=== PATIENT | male | born 1940 | race Caucasian/White ===

== ENCOUNTER 2020-09-20 00:47 | Inpatient (IN) ==
[2020-09-20] MEDS ORDERED: Ringers Solution, Lactated 1,000 ML IVC ONE (01:43)
[2020-09-20] MEDS ORDERED: Piperacillin/Tazobactam 3.375 GM in Water for inj. (sterile) 20 ML IVP ONE (01:43)
[2020-09-20] MEDS ORDERED: Vancomycin 1,250 MG/262.5 ML IV.SOLN IVPB ONE (01:43)
[2020-09-20 02:30] LABS: VBG HCO3 31 mEq/L (21-27); VBG PCO2 43 mmHg (41-51); VBG PH 7.46 pH Units (7.32-7.42); VBG PO2 91 mmHg (25-50)
[2020-09-20 02:33] LABS: Basophils # 0.1 K/mcL (0.0-0.2); Basophils % 0.5 %; Eosinophils # 0.3 K/mcL (0.0-0.6); Eosinophils % 1.7 %; Hematocrit 43.7 % (37.5-50.1); Hemoglobin 13.1 g/dL (12.9-16.9); Immature Granulocytes % 0.3 % (0-4); Lymphocytes % 13.4 %; Mean Corpuscular Hemoglobin 25.9 pg (28.0-33.3); Mean Corpuscular Volume 86.4 fL (83.0-100.0); Mean Platelet Volume 12.5 fL (9.4-12.4); Monocytes # 1.3 K/mcL (0.0-1.3); Monocytes % 8.5 %; Neutrophils # 11.2 K/mcL (1.6-8.9); Platelet Count 280 K/mcL (140-400); Red Blood Count 5.06 M/mcL (4.19-5.50); Red Cell Distribution Width 16.8 % (11.5-14.5); Segmented Neutrophils % 75.6 %; White Blood Count 14.8 K/mcL (4.3-11.1)
[2020-09-20 02:42] LABS: INR 1.1; Prothrombin Time 13.1 Seconds (9.4-12.1)
[2020-09-20 02:55] LABS: Alanine Aminotransferase 31 Units/L (7-52); Albumin 3.5 g/dL (3.5-5.7); Alkaline Phosphatase 103 Units/L (34-104); Aspartate Amino Transferase 22 Units/L (13-39); BUN/Creatinine Ratio 47 (6-26); Bilirubin,Indirect 0.3 mg/dL (0.0-1.0); Bilirubin,Total 0.3 mg/dL (0.3-1.0); Blood Urea Nitrogen 42 mg/dL (8-23); Calcium 9.1 mg/dL (8.6-10.3); Carbon Dioxide 29 mEq/L (23-29); Chloride 114 mEq/L (98-107); Globulin 3.6 g/dL (2.4-3.5); Glucose 123 mg/dL (70-105); Lipase 10 Units/L (11-82); Magnesium 2.3 mg/dL (1.6-2.6); Osmolality,Calculated 326 (280-300); Potassium 4.4 mEq/L (3.5-5.1); Sodium 152 mEq/L (136-145); Total Protein 7.1 g/dL (6.4-8.9); Troponin I 0.04 ng/mL (< 0.04); eGFR For African Americans > 60 (> 60); eGFR For Non-African Americans > 60 (> 60)
[2020-09-20 03:12] LABS: Bacteria,Urine Few per hpf (None-Few); Bilirubin,Urine Negative (Negative); Blood,Urine Moderate (Negative); Calcium Oxalate Crystals,Urine Present per hpf; Clarity,Urine Turbid (Clear); Color,Urine Yellow (Yellow); Glucose,Urine (UA) Normal (Normal); Ketones,Urine Negative (Negative); Leukocyte Esterase,Urine Large (Negative); Mucus,Urine Few per lpf (None-Few); Nitrite,Urine Positive (Negative); Protein,Urine 100 mg/dL (Neg-Trace); RBC,Urine TNTC per hpf (0-3); Specific Gravity,Urine 1.026 (1.010-1.025); Triple Phosphate Crystal,Urine Present per hpf; Urobilinogen,Urine Normal (Normal); WBC,Urine TNTC per hpf (0-3)
[2020-09-20] MEDS ORDERED: Azithromycin 250 MG TABLET PO ONE (04:14)
[2020-09-20] MEDS ORDERED: Naloxone 0.4 MG/ML INJ IVP PRN (04:40)
[2020-09-20] MEDS ORDERED: Ondansetron ODT 4 MG TAB.RAPDIS SL PRN (04:40)
[2020-09-20] MEDS ORDERED: Azithromycin 500 MG in 0.9 % Sodium Chloride 250 ML IVPB ONE (05:07)
[2020-09-20] MEDS ORDERED: Milk and Molasses Enema 200 ML RC ONE (05:12)
[2020-09-20 06:52] LABS: BUN/Creatinine Ratio 41 (6-26); Blood Urea Nitrogen 38 mg/dL (8-23); Calcium 8.9 mg/dL (8.6-10.3); Carbon Dioxide 31 mEq/L (23-29); Chloride 115 mEq/L (98-107); Glucose 168 mg/dL (70-105); Osmolality,Calculated 327 (280-300); Potassium 4.1 mEq/L (3.5-5.1); Sodium 152 mEq/L (136-145); Troponin I 0.03 ng/mL (< 0.04); eGFR For African Americans > 60 (> 60); eGFR For Non-African Americans > 60 (> 60)
[2020-09-20] MEDS: D5% in 0.45% NACL 1,000 ML IVC SCH ×2 (08:41→09:18)
[2020-09-20] MEDS ORDERED: *HR* Enoxaparin 30 MG/0.3 ML SYRINGE SQ SCH (09:00)
[2020-09-20] MEDS: Piperacillin/Tazobactam 3.375 GM in 0.9 % Sodium Chloride Mini Bag 100 ML IVPB SCH ×3 (09:46→16:50)
[2020-09-20 10:49] LABS: BUN/Creatinine Ratio 48 (6-26); Blood Urea Nitrogen 38 mg/dL (8-23); Carbon Dioxide 32 mEq/L (23-29); Chloride 116 mEq/L (98-107); Glucose 155 mg/dL (70-105); Osmolality,Calculated 328 (280-300); Potassium 3.9 mEq/L (3.5-5.1); Sodium 153 mEq/L (136-145); eGFR For African Americans > 60 (> 60); eGFR For Non-African Americans > 60 (> 60)
[2020-09-20 14:47] LABS: BUN/Creatinine Ratio 42 (6-26); Blood Urea Nitrogen 34 mg/dL (8-23); Calcium 8.7 mg/dL (8.6-10.3); Carbon Dioxide 32 mEq/L (23-29); Chloride 117 mEq/L (98-107); Glucose 136 mg/dL (70-105); Osmolality,Calculated 328 (280-300); Potassium 3.8 mEq/L (3.5-5.1); Sodium 154 mEq/L (136-145); eGFR For African Americans > 60 (> 60); eGFR For Non-African Americans > 60 (> 60)
[2020-09-20] MEDS: Vancomycin 1,250 MG/262.5 ML IV.SOLN IVPB SCH (14:55)
[2020-09-20 19:48] LABS: BUN/Creatinine Ratio 40 (6-26); Blood Urea Nitrogen 33 mg/dL (8-23); Calcium 8.4 mg/dL (8.6-10.3); Carbon Dioxide 30 mEq/L (23-29); Chloride 117 mEq/L (98-107); Glucose 127 mg/dL (70-105); Osmolality,Calculated 323 (280-300); Potassium 3.8 mEq/L (3.5-5.1); Sodium 152 mEq/L (136-145); eGFR For African Americans > 60 (> 60); eGFR For Non-African Americans > 60 (> 60)
[2020-09-20] MEDS: D5% in Water 1,000 ML IVC SCH (20:08)
[2020-09-20] MEDS: Piperacillin/Tazobactam 3.375 GM in D5% in Water (Mini-Bag+) 100 ML IVPB SCH (23:16)
[2020-09-21 06:33] LABS: Potassium,Urine 58.7 mEq/L; Sodium, Urine 69.4 mEq/L
[2020-09-21 06:58] LABS: Hematocrit 39.6 % (37.5-50.1); Hemoglobin 11.6 g/dL (12.9-16.9); Mean Corpuscular HGB Conc 29.3 g/dL (31.6-35.5); Mean Corpuscular Hemoglobin 25.9 pg (28.0-33.3); Mean Corpuscular Volume 88.4 fL (83.0-100.0); Mean Platelet Volume 12.7 fL (9.4-12.4); Platelet Count 226 K/mcL (140-400); Red Blood Count 4.48 M/mcL (4.19-5.50); Red Cell Distribution Width 16.4 % (11.5-14.5); White Blood Count 13.4 K/mcL (4.3-11.1)
[2020-09-21 09:24] LABS: Basophils # 0.1 K/mcL (0.0-0.2); Basophils % 0.4 %; Eosinophils # 0.3 K/mcL (0.0-0.6); Hematocrit 38.5 % (37.5-50.1); Hemoglobin 11.5 g/dL (12.9-16.9); Immature Granulocytes % 0.4 % (0-4); Lymphocytes # 1.6 K/mcL (0.6-4.6); Lymphocytes % 12.1 %; Mean Corpuscular HGB Conc 29.9 g/dL (31.6-35.5); Mean Corpuscular Hemoglobin 26.3 pg (28.0-33.3); Mean Corpuscular Volume 88.1 fL (83.0-100.0); Mean Platelet Volume 12.8 fL (9.4-12.4); Monocytes # 0.9 K/mcL (0.0-1.3); Platelet Count 221 K/mcL (140-400); Red Blood Count 4.37 M/mcL (4.19-5.50); Red Cell Distribution Width 16.2 % (11.5-14.5); Segmented Neutrophils % 78.1 %; White Blood Count 12.8 K/mcL (4.3-11.1)
[2020-09-21 09:42] LABS: BUN/Creatinine Ratio 46 (6-26); Blood Urea Nitrogen 36 mg/dL (8-23); Calcium 8.2 mg/dL (8.6-10.3); Carbon Dioxide 30 mEq/L (23-29); Chloride 115 mEq/L (98-107); Glucose 153 mg/dL (70-105); Osmolality,Calculated 321 (280-300); Potassium 4.1 mEq/L (3.5-5.1); Sodium 150 mEq/L (136-145); eGFR For African Americans > 60 (> 60); eGFR For Non-African Americans > 60 (> 60)
[2020-09-21] MEDS: D5% in Water 1,000 ML IVC SCH (10:15)
[2020-09-21] MEDS: Piperacillin/Tazobactam 3.375 GM in D5% in Water (Mini-Bag+) 100 ML IVPB SCH ×2 (10:16→16:52)
[2020-09-21] MEDS: *HR* Enoxaparin 40 MG/0.4 ML SYRINGE SQ SCH (10:17)
[2020-09-21] MEDS: Vancomycin 1,250 MG/262.5 ML IV.SOLN IVPB SCH (15:18)
[2020-09-21] MEDS ORDERED: TOLNAFTATE 108 GM TP PRN (16:34)
[2020-09-21] MEDS ORDERED: *HR* HYDROcodone/Acet 5/325 mg TABLET GTUBE PRN (16:34)
[2020-09-21] MEDS ORDERED: Bisacodyl 10 MG RECTAL SUPPOSITORY RC PRN (16:34)
[2020-09-21] MEDS ORDERED: Nystatin SUSP 5 ML UD.LIQ PO SCH (17:00)
[2020-09-21] MEDS ORDERED: Ondansetron 4 MG/2 ML VIAL IVP PRN (17:30)
[2020-09-21] MEDS: Milk and Molasses Enema 200 ML RC SCH (19:45)
[2020-09-21] MEDS: Artificial Tears SOLN 15 ML BOTTLE BOTH EYES SCH (20:03)
[2020-09-21] MEDS ORDERED: (Ipratropium Bromide 15 ML Spray) NS SCH (21:00)
[2020-09-22] MEDS: Piperacillin/Tazobactam 3.375 GM in D5% in Water (Mini-Bag+) 100 ML IVPB SCH ×3 (00:11→15:39)
[2020-09-22] MEDS: D5% in Water 1,000 ML IVC SCH ×2 (01:49→16:00)
[2020-09-22] MEDS: Ipratropium/Albuterol Neb 3 ML IH PRN ×2 (06:41→20:29)
[2020-09-22 08:54] LABS: Basophils % 0.2 %; Eosinophils # 0.5 K/mcL (0.0-0.6); Eosinophils % 4.2 %; Hematocrit 38.2 % (37.5-50.1); Hemoglobin 11.2 g/dL (12.9-16.9); Immature Granulocytes % 0.3 % (0-4); Lymphocytes # 1.5 K/mcL (0.6-4.6); Lymphocytes % 12.1 %; Mean Corpuscular HGB Conc 29.3 g/dL (31.6-35.5); Mean Corpuscular Hemoglobin 26.2 pg (28.0-33.3); Mean Corpuscular Volume 89.3 fL (83.0-100.0); Monocytes # 0.8 K/mcL (0.0-1.3); Monocytes % 6.1 %; Neutrophils # 9.5 K/mcL (1.6-8.9); Platelet Count 192 K/mcL (140-400); Red Blood Count 4.28 M/mcL (4.19-5.50); Red Cell Distribution Width 16.3 % (11.5-14.5); Segmented Neutrophils % 77.1 %; White Blood Count 12.4 K/mcL (4.3-11.1)
[2020-09-22 09:15] LABS: BUN/Creatinine Ratio 34 (6-26); Blood Urea Nitrogen 25 mg/dL (8-23); Calcium 8.2 mg/dL (8.6-10.3); Carbon Dioxide 28 mEq/L (23-29); Chloride 110 mEq/L (98-107); Glucose 148 mg/dL (70-105); Osmolality,Calculated 305 (280-300); Potassium 3.9 mEq/L (3.5-5.1); Sodium 144 mEq/L (136-145); eGFR For African Americans > 60 (> 60); eGFR For Non-African Americans > 60 (> 60)
[2020-09-22] MEDS: *HR* Enoxaparin 40 MG/0.4 ML SYRINGE SQ SCH (09:25)
[2020-09-22] MEDS: Artificial Tears SOLN 15 ML BOTTLE BOTH EYES SCH ×4 (09:25→20:48)
[2020-09-22] MEDS: Milk and Molasses Enema 200 ML RC SCH (10:43)
[2020-09-22] MEDS: Vancomycin 1,250 MG/262.5 ML IV.SOLN IVPB SCH (15:41)
[2020-09-22] MEDS ORDERED: D5% in Water 1,000 ML IVC SCH (18:09)
[2020-09-23] MEDS: Piperacillin/Tazobactam 3.375 GM in D5% in Water (Mini-Bag+) 100 ML IVPB SCH ×2 (01:14→09:02)
[2020-09-23] MEDS: Ipratropium/Albuterol Neb 3 ML IH PRN (05:59)
[2020-09-23] MEDS: Artificial Tears SOLN 15 ML BOTTLE BOTH EYES SCH ×4 (09:02→21:13)
[2020-09-23] MEDS: *HR* Enoxaparin 40 MG/0.4 ML SYRINGE SQ SCH (09:04)
[2020-09-23 12:13] LABS: Basophils % 0.3 %; Eosinophils # 0.5 K/mcL (0.0-0.6); Eosinophils % 4.4 %; Hematocrit 38.7 % (37.5-50.1); Hemoglobin 11.7 g/dL (12.9-16.9); Immature Granulocytes % 0.5 % (0-4); Lymphocytes # 1.3 K/mcL (0.6-4.6); Lymphocytes % 12.8 %; Mean Corpuscular HGB Conc 30.2 g/dL (31.6-35.5); Mean Platelet Volume 12.5 fL (9.4-12.4); Monocytes # 0.5 K/mcL (0.0-1.3); Neutrophils # 7.9 K/mcL (1.6-8.9); Platelet Count 202 K/mcL (140-400); Red Cell Distribution Width 15.7 % (11.5-14.5); White Blood Count 10.3 K/mcL (4.3-11.1)
[2020-09-23 12:32] LABS: BUN/Creatinine Ratio 28 (6-26); Blood Urea Nitrogen 17 mg/dL (8-23); Calcium 8.5 mg/dL (8.6-10.3); Carbon Dioxide 27 mEq/L (23-29); Chloride 105 mEq/L (98-107); Glucose 148 mg/dL (70-105); Osmolality,Calculated 292 (280-300); Potassium 3.7 mEq/L (3.5-5.1); Sodium 139 mEq/L (136-145); eGFR For African Americans > 60 (> 60); eGFR For Non-African Americans > 60 (> 60)
[2020-09-23] MEDS ORDERED: *HR* Alteplase (Cathflo) 2 MG VIAL IVP ONE (12:46)
[2020-09-24] MEDS: D5% in Water 1,000 ML IVC SCH (07:22)
[2020-09-24] MEDS ORDERED: levoFLOXacin 750 MG TABLET PO SCH (09:00)
[2020-09-24] MEDS: *HR* Enoxaparin 40 MG/0.4 ML SYRINGE SQ SCH (09:21)
[2020-09-24] MEDS: Artificial Tears SOLN 15 ML BOTTLE BOTH EYES SCH ×4 (09:29→21:37)
[2020-09-24 10:09] LABS: Blood Urea Nitrogen 16 mg/dL (8-23); Calcium 8.6 mg/dL (8.6-10.3); Carbon Dioxide 28 mEq/L (23-29); Chloride 108 mEq/L (98-107); Glucose 99 mg/dL (70-105); Osmolality,Calculated 299 (280-300); Potassium 3.7 mEq/L (3.5-5.1); Sodium 144 mEq/L (136-145)
[2020-09-24 10:19] LABS: BUN/Creatinine Ratio 27 (6-26); eGFR For African Americans > 60 (> 60); eGFR For Non-African Americans > 60 (> 60)
[2020-09-24 11:32] LABS: Basophils % 0.3 %; Eosinophils # 0.3 K/mcL (0.0-0.6); Eosinophils % 2.9 %; Hematocrit 37.3 % (37.5-50.1); Hemoglobin 11.5 g/dL (12.9-16.9); Immature Granulocytes % 0.4 % (0-4); Lymphocytes % 10.5 %; Mean Corpuscular HGB Conc 30.8 g/dL (31.6-35.5); Mean Corpuscular Hemoglobin 26.6 pg (28.0-33.3); Mean Corpuscular Volume 86.1 fL (83.0-100.0); Mean Platelet Volume 12.8 fL (9.4-12.4); Monocytes # 0.6 K/mcL (0.0-1.3); Monocytes % 6.6 %; Neutrophils # 7.2 K/mcL (1.6-8.9); Platelet Count 210 K/mcL (140-400); Red Blood Count 4.33 M/mcL (4.19-5.50); Red Cell Distribution Width 15.8 % (11.5-14.5); Segmented Neutrophils % 79.3 %; White Blood Count 9.1 K/mcL (4.3-11.1)
[2020-09-25] MEDS: Artificial Tears SOLN 15 ML BOTTLE BOTH EYES SCH (07:38)
[2020-09-25] MEDS: *HR* Enoxaparin 40 MG/0.4 ML SYRINGE SQ SCH (07:38)
[2020-09-25] MEDS ORDERED: Bisacodyl 10 MG RECTAL SUPPOSITORY RC STA (09:51)
[2020-09-25 11:03] VITALS: BP 136/67; PULSE 87; TEMP 98.5; O2SAT 93
[2020-09-25] MEDS ORDERED: Sennosides/Docusate Sodium TABLET PO SCH (21:00)
[2020-09-25] MEDS ORDERED: Amoxicillin/Clavulanate 400 MG/5 ML UDC GTUBE SCH (21:00)
== END 2020-09-25 13:51 | DRG 698 ==
LOC: EMEROOARM 00:47 → 3ANU 00:47 → SUATTDRO 04:46 → 3ANU 05:15
PROVIDERS: ADMIT Internal Medicine; ATTEND General Practice